=== PATIENT | female | born 1970 | race Two or more races ===

== ENCOUNTER 2021-10-06 12:16 | Emergency (ER) | payer SELFPAY ==
[~2021-10-06] VITALS: Ht 152.4 cm; Wt 62.6 kg
[2021-10-06 12:19] VITALS: BP 169/86
[2021-10-06] MEDS ORDERED: IBUP-1007 PO (14:14)
[2021-10-06] MEDS ORDERED: AMOX1TAB61 PO (14:14)
[2021-10-06] MEDS ORDERED: ONDA4TAB12 PO (14:14)
--- NOTE | 2021-10-06 14:15 | PHYS DOC ---
Past Medical History Past Surgical History: Smoking Status: Never Smoker Alcohol Use: None General Adult EDM: Chief Complaint: DENTAL PROBLEM HPI: HPI: Patient is a 51-year-old female presents emerged department complaining of painful gums on the upper right side. Patient reports she usually wears dentures, however unable to place her dentures because of the painful gums. Patient states this has been going on for about 4 days now. Patient states she is visiting here from [place] and has an appointment to see her dentist for adjustment of her dental implant. Patient denies recent fever or chills, denies nausea, vomiting, diarrhea. Patient denies trouble speaking, denies ear pain or throat pain. Patient denies facial numbness. Patient states she did take 2 Advil last night with some relief in pain. Patient fears she may have a dental infection and wants to be started on antibiotics prior to her visit with her dentist. Patient denies other physical complaints or physical concerns. Review of Systems: Review of Systems: 14 body systems of review of systems have been reviewed. See HPI for pertinent positives and negative responses, otherwise all other systems are negative, nonpertinent or noncontributory. Constitutional: Negative except as outlined in HPI above. Skin: Negative except as outlined in HPI above. Eyes: Negative except as outlined in HPI above. HENT: Negative except as outlined in HPI above. Respiratory: Negative except as outlined in HPI above. Cardiovascular: Negative except as outlined in HPI above. GI: Negative except as outlined in HPI above. : Negative except as outlined in HPI above. Musculoskeletal: Negative except as outlined in HPI above. Integument: Negative except as outlined in HPI above. Neurologic: Negative except as outlined in HPI above. Endocrine: Negative except as outlined in HPI above. Lymphatic: Negative except as outlined in HPI above. Psychiatric: Negative except as outlined in HPI above. Heart Score: C/O Chest Pain: No Risk Factors: Risk Factors: DM, Current or recent (<one month) smoker, HTN, HLP, family history of CAD, obesity. Risk Scores: Score 0 - 3: 2.5% MACE over next 6 weeks - Discharge Home Score 4 - 6: 20.3% MACE over next 6 weeks - Admit for Clinical Observation Score 7 - 10: 72.7% MACE over next 6 weeks - Early Invasive Strategies Allergies: Allergies: Allergies Coded Allergies Type Severity Reaction Last Updated Verified No Known Drug Allergies 10/06/21 No Physical Exam: PE: Constitutional: Well developed, well nourished, no acute distress, non-toxic appearance. 51-year-old female in no apparent distress. HENT: Normocephalic, atraumatic. Patient does not have dentition of maxilla, does have 2 denture attachment sites present, there is erythematous tissue at the left upper without exudative drainage. There is no lymphadenopathy of the head or neck appreciated, no uvular edema or deviation, there is no abdullahi tonsillar swelling or cobblestoning or erythema, there is no laryngeal edema present, patient speaking in normal voice tones, there is no drooling, no trismus. Bilateral TMs are intact and within normal limits. Eyes: Conjunctiva normal, no discharge. Neck: Normal range of motion, no stridor. Cardiovascular: No cyanosis appreciated, distal cap refill less than 2 seconds. Lungs & Thorax: Patient is in no respiratory distress, no audible adventitious lung sounds appreciated. Abdomen: Nontender, no abnormalities noted. Skin: Warm, dry, no erythema, no rash. Back: No tenderness, no deformities. Extremities: No tenderness, no cyanosis, no clubbing, ROM intact, no edema. Neurologic: Alert and oriented X 3, normal motor function, normal sensory function, no focal deficits noted. Psychologic: Affect normal, judgement normal, mood normal. Current Patient Data: Vital Signs: Vital Signs Date Time Temp Pulse Resp B/P (MAP) Pulse Ox O2 Delivery O2 Flow Rate FiO2 10/06/21 12:19 98.2 68 16 169/86 (113) 98 Room Air 98.2 EKG: EKG: [] Radiology/Procedures: Radiology/Procedures: [] Course & Med Decision Making: Course & Med Decision Making Pertinent Labs and Imaging studies reviewed. (See chart for details) 51-year-old female, vital signs reviewed, presents emerged from concerning infected gums. Physical examination concerning for dental infection, will start on Augmentin therapy, ibuprofen for pain, patient reports she is from [place] and is returning here in 4 days, states she has an appointment with her dentist soon. Discussed with patient keeping all dental appointments, return to ER precautions or concerns were reviewed, patient gave verbal understanding of and is amenable to ED discharge planning. Discussed with the patient all findings and diagnostic testing as well as the need to follow-up with their primary care provider for further evaluation and treatment or return to the ED if any new or worsening symptoms. Strict return precautions were also discussed at length, the patient voiced understanding and agreement with the discharge planning. The patient was nontoxic in appearance, in no apparent distress, and hemodynamically stable at the time of disposition. Dragon Disclaimer: Dragon Disclaimer: This electronic medical record was generated, in whole or in part, using a voice recognition dictation system. Departure Departure Impression: Primary Impression: Dental infection Disposition: HOME / SELF CARE / HOMELESS Condition: GOOD Patient Instructions: Gingivitis Additional Instructions: Lo vieron hoy en el departamento de emergencias por dolor en las encas, le comenc con un antibitico, analgsicos, tambin le di hernandez receta para un medicamento contra las nuseas, por favor mantenga murillo reyna con el cirujano oral prximamente en [place]. Faby por visitar nuestro Departamento de Emergencias. Fue un placer atenderlo hoy en el departamento de emergencias y le agradecemos que nos haya confiado murillo atencin. Si surge algn problema adicional, no dude en volver a visitarnos. Abdirashid un seguimiento con murillo proveedor de atencin primaria para que puedan planificar atencin adicional si es necesario y conocer el problema que tuvo. Si los sntomas empeoran, regrese al Departamento de Emergenc ias. Cualquier sntoma preocupante que comience, morro dolor en el pecho, falta de aire, debilidad o entumecimiento en un lado del cuerpo, fiebre ricardo o cualquier otro sntoma preocupante, regresa a la jose alfredo de emergencias. You were seen today in the emergency department for pain in your gums, I have started you on an antibiotic, pain medication, I have also given you prescription for antinausea medicine please keep your oral surgeon appointment coming up soon in [place]. Thank you for visiting our Emergency Department. It was a pleasure taking care of you today in the emergency department and we appreciate you trusting us with your care. If any additional problems come up don't hesitate to return to visit us. Please follow up with your primary care provider so they can plan additional care if needed and know about the problem that you had. If symptoms worsen come back to the Emergency Department. Any concerning symptoms that start such as chest pain, shortness of air, weakness or numbness on one side of the body, running high fevers or any other concerning symptoms return to the ER. Scripts Ibuprofen (IBUPROFEN) 600 Mg Tablet 600 MG PO PRN Q6HRS PRN for INFLAMMATION, #30 TAB 0 Refills Prov: ADOLFO FLOYD APRN 10/06/21 Ondansetron (ONDANSETRON ODT) 4 Mg Tab.rapdis 1 TAB PO PRN Q6-8HRS for nausea, #16 TAB 0 Refills Prov: ADOLFO FLOYD APRN 10/06/21 Amoxicillin/Potassium Clav (AUGMENTIN 875-125 TABLET) 1 Each Tablet 1 TAB PO BID for dental infection for 10 Days, #20 TAB 0 Refills Prov: ADOLFO FLOYD APRN 10/06/21 ADOLFO FLOYD APRN Oct 06, 2021 14:15
[2021-10-06] MEDS ORDERED: IBUPROFEN 200 MG TABLET. PO ONE (14:30)
== END 2021-10-06 14:37 | disposition home or self-care (01) ==
LOC: ER 12:16
DX: K04.7 Periapical abscess without sinus (principal)
CPT/HCPCS: 99283